=== PATIENT | male | born 1995 ===

== ENCOUNTER 2024-02-13 22:16 | Emergency (ER) | payer SELFPAY ==
--- NOTE | ~2024-02-13 | XR_ITS ---
Right Hand Technique: PA, oblique, and lateral views were obtained. Clinical History: Swelling Findings: No acute fracture or dislocation is seen. Osseous alignment is anatomic. Joint spaces are p reserved. There is mild dorsal soft tissue swelling. Impression: Mild dorsal soft tissue swelling. Reviewed, dictated and finalized at location . Impression: Mild dorsal soft tissue swelling.
[2024-02-13 22:25] VITALS: BP 129/65; PULSE 66; RESP 14; TEMP 36.6; O2SAT 100
--- NOTE | 2024-02-13 23:27 | PC.NURSE ---
spouse to board turner we have been waiting over an hour. Where are we in the line. This rn did explain that we have evaluated the patient and are attempting to get him into a room. We did move the patient up higher in line, but that there are currently no open beds. Pt told this board turner I am taking him to another hospital and if he is having an allergic reaction in the hand because it has doubled in swelling size, I am filing a complaint against you, this er, and then this hospital. Pt then told pt they were leaving and began raising her voice while speaking in french to this rn.
== END 2024-02-14 00:17 | disposition left against medical advice (07) ==
LOC: ANHED 02-14 00:11
PROVIDERS: Emergency Provider Emergency Medicine
DX: S69.91XA Unspecified injury of right wrist, hand and finger(s), initial encounter (principal); W27.0XXA Contact with workbench tool, initial encounter
CPT/HCPCS: 73130; 99199